=== PATIENT | female | born 1955 | race Caucasian/White ===

== ENCOUNTER → 2021-10-27 | Outpatient (CLI) | payer BC, MEDICARE ==
--- NOTE | 2021-10-27 14:15 | CT ---
EXAMINATION TYPE: CT right knee - [facility] Protocol DATE OF EXAM: 10/27/2021 COMPARISON: NONE HISTORY: Pre op CT DLP: 703.2 mGycm. Automated Exposure Control for Dose Reduction was Utilized. TECHNIQUE: CT scan of the right knee is performed without contrast. Imaging includes additional porti ons of the right lower extremity FINDINGS: Exam is for surgical planning and not for diagnostic purposes. Hip joints appear symmetric with mild acetabular spurring and relative preservation of hip joint spac es. Right knee shows moderate to severe medial tibiofemoral compartment narrowing with more moderate patellofemoral compartment narrowing and spurring and mild to moderate narrowing and moderate spurrin g lateral tibiofemoral compartment. Bilateral ankle joints show postsurgical change at level of sinus tarsi on the left. IMPRESSION: As above.
== END | disposition home or self-care (01) ==
LOC: RADCTMAIN 13:20
PROVIDERS: ATTEND Orthopaedic Surgery
DX: M76.891 Other specified enthesopathies of right lower limb, excluding foot (principal)

== ENCOUNTER → 2021-11-24 | Outpatient (CLI) | payer BC ==
[2021-11-24 13:35] LABS: INR 0.9 (<1.2); Partial Thromboplastin Time 24.7 sec (22.0-30.0); Prothrombin Time 10.2 sec (9.0-12.0)
[2021-11-24 18:41] LABS: Appearance,Urine Clear (Clear); Bilirubin,Urine Negative (Negative); Blood,Urine Negative (Negative); Color,Urine Yellow (Yellow); Ketones,Urine Negative (Negative); Nitrite,Urine Negative (Negative); PH, Urine 6.5 (5.0-8.0); Urobilinogen,Urine 0.2 (0.2,1.0)
[2021-11-24 18:46] LABS: African American GFR (CKD) 110.9 (60.0-200.0); Albumin/Globulin Ratio 1.54 (1.60-3.17); Anion Gap 9.4 mmol/L (10.00-18.00); BUN/Creat Ratio 17.67 Ratio (12.00-20.00); Blood Urea Nitrogen 10.6 mg/dL (9.0-27.0); Calcium 8.9 mg/dL (8.7-10.3); Carbon Dioxide 24.6 mmol/L (20.0-27.5); Globulin 2.6 g/dL (1.6-3.3); Non-African American GFR(CKD) 95.7 (60.0-200.0); Potassium 4.3 mmol/L (3.5-5.5); Total Bilirubin 0.2 mg/dL (0.30-1.20); Total Protein 6.6 g/dL (6.2-8.2)
[2021-11-24 19:49] LABS: HCT 43.6 % (37.2-46.3); MCH 29.7 pg (27.0-32.0); MCHC 32.1 g/dL (32.0-37.0); MCV 92.6 fL (80.0-97.0); Mean Platelet Volume 10.6 fL (9.5-12.2); NRBC Per 100 WBC 0 /100 WBCS (0.0-0.0); Platelet Count 225 X 10*3/uL (140-440); RBC 4.71 X 10*6/uL (4.10-5.20); RDW 13.5 % (11.5-14.5)
== END | disposition home or self-care (01) ==
LOC: LABPAT 12:25
PROVIDERS: ATTEND Orthopaedic Surgery
DX: Z01.818 Encounter for other preprocedural examination (principal); M17.11 Unilateral primary osteoarthritis, right knee
CPT/HCPCS: 80053; 81003; 85027; 85610; 85730; 87070; 93005

== ENCOUNTER 2021-12-09 08:19 | Observation (INO) | payer BC, MEDICARE ==
[2021-12-07 13:30] VITALS: BMI 33.5
[~2021-12-09 08:19] MED LIST: ACETAMINOPHEN TAB 500 MG TAB PO PRN; DEXAMETHASONE SOD PHOSPHATE 10 MG/ML 1 ML VIAL IV PRN; DOCUSATE 100 MG CAP PO PRN; FAMOTIDINE 20 MG/2 ML VIAL IVP PRN; KETOROLAC 15 MG/ML 1 ML VIAL IVP PRN; LACTATED RINGERS 1,000 ML IV SCH; MIDAZOLAM 2 MG/2 ML VIAL IV PRN; ONDANSETRON 4 MG/2 ML VIAL IVP PRN; TRANEXAMIC ACID IN NACL,ISO-OS 1,000 MG in SALINE 1 100ML.BAG IVPB PRN; fentaNYL (PF) 50 MCG/ML 2 ML AMP IV PRN; oxyCODONE ER 10 MG TAB.ER.12H PO PRN
[2021-12-09] MEDS ORDERED: MIDAZOLAM 2 MG/2 ML VIAL IVP ONE (09:22)
[2021-12-09] MEDS ORDERED: fentaNYL (PF) 50 MCG/ML 2 ML AMP IVP ONE (09:24)
[2021-12-09] MEDS ORDERED: TRANEXAMIC ACID IN NACL,ISO-OS 1,000 MG/100 ML BAG ONE (09:53)
[2021-12-09] MEDS ORDERED: ePHEDrine 50 MG/ML 1 ML VIAL ONE (09:53)
[2021-12-09] MEDS ORDERED: MIDAZOLAM 2 MG/2 ML VIAL ONE (09:53)
[2021-12-09] MEDS ORDERED: fentaNYL (PF) 50 MCG/ML 2 ML AMP ONE (09:53)
[2021-12-09] MEDS ORDERED: ROPIVACAINE 5 MG/ML 30 ML VIAL ONE (09:53)
[2021-12-09] MEDS ORDERED: PROPOFOL 10 MG/ML 20 ML VIAL IV ONE (09:53)
[2021-12-09] MEDS ORDERED: SODIUM CHLORIDE 0.9% (PF) 10 ML VIAL ONE (09:53)
[2021-12-09] MEDS: ROPIVACAINE/EPI/CLONIDINE/KET 50 ML SYRINGE MISCELLANE PRN ×3 (10:26→11:24)
[2021-12-09] MEDS ORDERED: LACTATED RINGERS 1,000 ML IV ONE ×2 (10:36)
--- NOTE | 2021-12-09 10:51 | P.ANPRN ---
Procedure Note - Anesthesia - Nerve Block Performed Right Adductor Canal Time Out Performed: Yes () Date of Procedure: 12/09/21 Procedure Start Time: Procedure Stop Time: Location of Patient: PreOp Indication: Acute Post-Operative Pain, Requested by Surgeon (Dr Navarro) Sedation Type: Sedate with meaningful contact maintained Preparation: Sterile Prep Position: Supine Catheter: None Needle Types: Pajunk Needle Gauge: 21 Ultrasound used to visualize needle placement: Yes Ultrasound used to observe medication spread: Yes Injectate: 0.5% Ropivacaine (see comment for volume) (15cc) Blood Aspirated: No Pain Paresthesia on Injection Noted: No Resistance on Injection: Normal Image Stored and Saved: Yes Events: Uneventful and Well Tolerated
--- NOTE | 2021-12-09 10:52 | P.ANPRN ---
Procedure Note - Anesthesia - Nerve Block Performed Right iPack Time Out Performed: Yes Date of Procedure: 12/09/21 Procedure Start Time: 09:36 Procedure Stop Time: 09:41 Location of Patient: PreOp Indication: Acute Post-Operative Pain, Requested by Surgeon (Dr Navarro) Sedation Type: Sedate with meaningful contact maintained Preparation: Sterile Prep Position: Supine Catheter: None Needle Types: Pajunk Needle Gauge: 21 Ultrasound used to visualize needle placement: Yes Ultrasound used to observe medication spread: Yes Injectate: 0.5% Ropivacaine (see comment for volume) (15cc +5cc PF Normal saline) Blood Aspirated: No Pain Paresthesia on Injection Noted: No Resistance on Injection: Normal Image Stored and Saved: Yes Events: Uneventful and Well Tolerated
[2021-12-09] MEDS ORDERED: HYDROcodone/APAP 5-325MG 1 EACH TAB PO PRN (12:16)
[2021-12-09] MEDS ORDERED: NALOXONE 0.4 MG/ML 1 ML VIAL IV PRN (12:16)
[2021-12-09] MEDS ORDERED: HYDROmorphone 0.5 MG/0.5 ML SYRINGE IVP PRN ×2 (12:16)
--- NOTE | 2021-12-09 12:18 | P.OP ---
Date of Procedure: 12/09/21 Preoperative Diagnosis: 1. Right knee osteoarthritis 2. Fibromyalgia 3. Asthma Postoperative Diagnosis: Same Procedure(s) Performed: Right total knee arthroplasty Implants: 1. [place] [employer] CR Femur Size #3 2. [place] [employer] [place] Tibial Base Size #3 3. [place] [employer] CS poly Size #3,9-mm 4. [place] [employer]lon all poly patella, Size #29 Anesthesia: regional, spinal Surgeon: Kip Navarro Distributed Generation Project Manager #1: Renuka Cortes Estimated Blood Loss (ml): 100 IV fluids (ml): 1,400 Pathology: none sent Condition: stable Disposition: PACU Indications for Procedure: I met with the patient preoperatively in the office setting and discussed treatment of their symptomatic knee arthritis. They failed a long course of nonsurgical treatment and elected to proceed with an elective total knee r eplacement. I discussed the potential risks and complications at length and gave them ample time to ask questions. Risks discussed included: risks from anesthesia, superficial site surgical infection, acute and/or chronic periprosthetic joint infection, delayed wound healing, drainage, wound necrosis, instability, stiffness, stiffness requiring manipulation and/or revision surgery, damage to local blood vessels or nerves, aseptic loosening of the implants, extensor mechanism issues including disruption, patellar maltracking, avascular necrosis etc., continued or worsened knee pain, generalized dissatisfaction with surgical outcome, need for revision surgery, an inability to regain preinjury level of function, DVT, PE, other medical complications, and possibly loss of life or limb. The patient voiced their understanding that while these are the most common complications other less common complications are possible. They provided both their verbal and written consent to go forward with surgery. Operative Findings: Severe tricompartmental osteoarthritis Description of Procedure: The patient was identified in preoperative holding and the correct operative extremity was verified and marked with a marker. I reviewed the consent form with the patient at length. All of their questions were answered. The patient was given a block by anesthesia. They were then brought back to the operating room. They were transferred onto the operating room table where a general anesthetic, preoperative antibiotics, and tranexamic acid were administered by anesthesia. A tourniquet was applied to the proximal aspect of the operative extremity. The contralateral extremity was padded under the heel and secured to the operating room table with a nonsterile blue towel and tape. The ipsilateral arm was carefully draped across the patient's chest and secured with a pillow and foam. A post was applied over the lateral aspect of the ipsilateral thigh and a bolster was placed under the ipsilateral foot. I verified that the operative extremity was stable and the knee was flexed to 90. The operative extremity was then placed in a leg nix, nonsterile drapes were applied, and the extremity was prepped and draped sterilely in the standard sterile fashion. Prior to starting surgery timeout was performed identifying the correct patient, operative extremity, and procedure. The leg was then elevated, exsanguinated with an Esmarch bandage, and the tourniquet was inflated. An anterior midline incision was made sharply with a scalpel. Once I had dissected deep to the superficial fascial layer medial and lateral flaps were elevated. A medial parapatellar arthrotomy was created. Upon opening the knee joint there were diffuse arthritic changes in all 3 compartments. The anterior horn of the medial meniscus were sharply released and a medial release was performed around the posterior medial corner of the knee to facilitate retractor placement. The fat pad was excised with electrocautery. The patella was found to be severely arthritic and a provisional cut was made with a sagittal saw to facilitate mobilization of the extensor mechanism during the procedure. Remnants of the ACL and PCL were then excised from the notch. 4 mm pins were then placed within the incision in the medial distal femur and proximal tibia. Arrays were applied to the pins and I verified they were completely tightened. The knee was then registered with the [employer] robot and manipulations in implant position were made to balance the knee and opitmize implant position. Using the Ming robotic saw all cuts were made in accordance with our plan. After all bony fragments had been removed the cuts were verified with the planar probe. The tibia was then subluxed forward and sized. The knee was brought into flexion and a lamina pickling drum operator was placed to allow removal of the meniscal remnants both medially and laterally as well as posterior osteophytes. Local anesthetic was then infiltrated around the joint capsule. Trial implants were then placed within the knee. Range of motion and collateral ligament tension was then evaluated. Adjustments in implant size and position were then made accordingly. Once the knee was felt to be appropriately balanced the Ming pins were removed. The patella was then recut, sized, and punched. A trial patellar button was then placed. With the trial components in place, the patella tracked midline. The femur was then drilled and the trial component removed. The trial tibial component was then appropriately rotated, pinned, and prepared for the keel. All trial components were then removed from the knee. The knee was thoroughly irrigated with pulsatile lavage. Cement was prepared via vacuum mixing in a bowl on the back table. I then hand pressurized cement into the femur and tibia and placed the implants beginning with the tibial base tray and poly liner, femoral component, and finally the patellar button. All extruded cement was removed including from the pin sites. Once the cement had hardened the knee was evaluated one final time with the final polyethylene liner in place. The knee had full extension and flexion and felt stable to varus and valgus stress throughout the arc of motion. The tourniquet was released and with the tourniquet down the patella tracked midline. All bleeders were controlled with electrocautery. The knee was then soaked for 3 minutes with a dilute Betadine soak. The knee was thoroughly irrigated using 3 L of sterile saline and pulsatile lavage. The extensor mechanism was then reapproximated using pop off Vicryl sutures followed by a running barbed suture. The knee was then closed in layers with a 0 strata fix for the deep fascial layer, 2-0 strata fix for the superficial subcutaneous layer and Monocryl and Steri-Strips for the skin. A sterile dressing was applied. I verified that all instrument, sponge, and sharp counts were correct. The patient was then transferred off the operating room table, extubated, and brought to recovery having tolerated the procedure well. Renuka Cortes PA-C was required as a skilled speech assistant due to the complexity of the procedure for patient positioning, draping, retraction, placement of hardware, and closure of wound. PLAN: The patient can weight-bear as tolerated on the operative extremity. DVT prophylaxis with aspirin 81 mg twice a day based on preoperative risk stratification. Follow-up in the office in 2 weeks for wound check and x-rays of the knee including an AP and lateral.
[2021-12-09] MEDS ORDERED: HYDROmorphone 0.5 MG/0.5 ML SYRINGE IVP ONE (12:35)
--- NOTE | 2021-12-09 13:00 | XR ---
EXAMINATION TYPE: XR knee limited RT DATE OF EXAM: 12/09/2021 COMPARISON: NONE HISTORY: 65-year-old female evaluation for postoperative abnormality and alignment TECHNIQUE: 2 views FINDINGS: Images show placement of right total knee arthroplasty. Both distal femoral and proximal tibial compo nents of the prosthesis are well seated without periprosthetic fracture. Alignment grossly anatomic. Anterior soft tissue swelling with soft tissue air as well as intra-articular air related to recent o peration. IMPRESSION: Uncomplicated postoperative appearance right total knee arthroplasty.
[2021-12-09] MEDS ORDERED: ALBUTEROL NEBULIZED 2.5 MG/3 ML INHALATION PRN (14:45)
[2021-12-09] MEDS ORDERED: ALBUTEROL HFA INHALER INHALATION PRN (14:45)
[2021-12-09] MEDS: HYDROcodone/APAP 5-325MG 1 EACH TAB PO PRN ×2 (15:30→22:32)
[2021-12-09] MEDS: LACTATED RINGERS 1,000 ML IV SCH (18:45)
[2021-12-09] MEDS: ASPIRIN 81 MG PO SCH (19:59)
[2021-12-09] MEDS ORDERED: SENNOSIDES-DOCUSATE SODIUM 1 EACH TAB PO SCH (21:00)
[2021-12-09] MEDS: hydrOXYzine pamoate 25 MG CAP PO PRN (22:30)
[2021-12-10] MEDS: HYDROmorphone 0.5 MG/0.5 ML SYRINGE IVP PRN ×3 (01:43→11:15)
[2021-12-10] MEDS: LACTATED RINGERS 1,000 ML IV SCH ×3 (02:25→08:19)
[2021-12-10] MEDS: hydrOXYzine pamoate 25 MG CAP PO PRN ×2 (04:08→09:30)
[2021-12-10] MEDS ORDERED: THYROID, PORK 30 MG TAB PO SCH (06:30)
[2021-12-10] MEDS ORDERED: oxyCODONE-APAP 5-325MG 1 EACH TAB PO PRN ×2 (07:02)
--- NOTE | 2021-12-10 07:05 | P.DS ---
Providers Date of admission: 12/10/21 02:28 Attending physician: Kip Navarro Consults: 12/09/21 12:16 Consult Physician Routine Consulting Provider: Oscar Shine Consult Reason/Comments: medical management Do you want consulting provider notified?: Yes Primary care physician: Elijah Billy Ashok [facility] Course: The patient is very pleasant 65-year-old female who underwent an uncomplicated total knee replacement yesterday. She did well during surgery and was transferred to the orthopedic floor. She's been up and walk. She initially had no pain but her block wore off and now she has some discomfort in her right knee. She states that [place] is not controlling her pain and she was switched to Percocet. She was seen and evaluated by physical therapy. She was ultimately cleared for discharge home. Plan - Discharge Summary Discharge Rx Participant: No New Discharge Prescriptions: New Aspirin 81 mg PO BID 30 Days #60 tab Docusate [Colace] 100 mg PO BID #60 capsule HYDROcodone/APAP 5-325MG [[place] 5-325] 1 - 2 tab PO Q6HR PRN 7 Days #32 tab PRN Reason: Pain Omeprazole 40 mg PO DAILY 30 Days #30 cap Diclofenac Sodium [Voltaren] 75 mg PO BID 30 Days #60 tab No Action Diclofenac Sodium [Voltaren] 75 mg PO BID Ascorbic Acid [Vitamin C] 500 mg PO DAILY Turmeric Root Extract [Turmeric] 500 mg PO DAILY Gluc/Chond/MSM/Hyal/Casa Borate [Move Free Plus MSM Tablet] 1 each PO DAILY Alpha Lipoic Acid 300 mg PO DAILY Ubidecarenone [Co Q-10] 100 mg PO DAILY Albuterol Nebulized [Ventolin Nebulized] 2.5 mg INHALATION Q6H PRN PRN Reason: alg Pregnenolone 1 dose PO DAILY Iodine Liquid 4 drop PO DAILY Deha Supp 10 mg PO DAILY traMADol HCL 25 mg PO Q6H PRN PRN Reason: Pain Thyroid,Pork [[place] Thyroid] 45 mg PO QAM Magnesium 800 mg PO DAILY Zinc Citrate [Zinc] 15 mg PO DAILY Gluc Control Supplement 1 dose PO DAILY Cholecalciferol (Vitamin D3) [Vitamin D3 (125 MCG = 5,000 IU)] 250 mcg PO DAILY Milk Thistle 150 mg PO DAILY Vitamin B Complex 1 each PO DAILY Albuterol Inhaler [Ventolin Hfa Inhaler] 1 - 2 puff INHALATION Q6H PRN PRN Reason: sob Tocotrienal 1 dose PO DAILY Edta Supp 300 mg PO DAILY Discharge Medication List Albuterol Inhaler [Ventolin Hfa Inhaler] 1 - 2 puff INHALATION Q6H PRN 12/07/21 [History] Albuterol Nebulized [Ventolin Nebulized] 2.5 mg INHALATION Q6H PRN 12/07/21 [History] Alpha Lipoic Acid 300 mg PO DAILY 12/07/21 [History] Ascorbic Acid [Vitamin C] 500 mg PO DAILY 12/07/21 [History] Cholecalciferol (Vitamin D3) [Vitamin D3 (125 MCG = 5,000 IU)] 250 mcg PO DAILY 12/07/21 [History] Deha Supp 10 mg PO DAILY 12/07/21 [History] Diclofenac Sodium [Voltaren] 75 mg PO BID 12/07/21 [History] Edta Supp 300 mg PO DAILY 12/07/21 [History] Gluc Control Supplement 1 dose PO DAILY 12/07/21 [History] Gluc/Chond/MSM/Hyal/Casa Borate [Move Free Plus MSM Tablet] 1 each PO DAILY 12/07/21 [History] Iodine Liquid 4 drop PO DAILY 12/07/21 [History] Magnesium 800 mg PO DAILY 12/07/21 [History] Milk Thistle 150 mg PO DAILY 12/07/21 [History] Pregnenolone 1 dose PO DAILY 12/07/21 [History] Thyroid,Pork [[place] Thyroid] 45 mg PO QAM 12/07/21 [History] Tocotrienal 1 dose PO DAILY 12/07/21 [History] Turmeric Root Extract [Turmeric] 500 mg PO DAILY 12/07/21 [History] Ubidecarenone [Co Q-10] 100 mg PO DAILY 12/07/21 [History] Vitamin B Complex 1 each PO DAILY 12/07/21 [History] Zinc Citrate [Zinc] 15 mg PO DAILY 12/07/21 [History] traMADol HCL 25 mg PO Q6H PRN 12/07/21 [History] Aspirin 81 mg PO BID 30 Days #60 tab 12/09/21 [Rx] Diclofenac Sodium [Voltaren] 75 mg PO BID 30 Days #60 tab 12/09/21 [Rx] Docusate [Colace] 100 mg PO BID #60 capsule 12/09/21 [Rx] HYDROcodone/APAP 5-325MG [[place] 5-325] 1 - 2 tab PO Q6HR PRN 7 Days #32 tab 12/09/21 [Rx] Omeprazole 40 mg PO DAILY 30 Days #30 cap 12/09/21 [Rx] Follow up Appointment(s)/Referral(s): [facility], [NON-STAFF] - 1 Week Kip Navarro MD [Medical Doctor] - 2 Weeks Activity/Diet/Wound Care/Special Instructions: Weight bear to tolerance on operative extremity with a walker. Keep operative dressing intact until follow-up appointment in the office. Call the office if dressing becomes saturated or falls off. May shower over dressing. Take pain medications as needed. Take aspirin 81mg BID x 4 weeks for blood clot prevention. Follow-up in the office in two weeks with Dr. Navarro. Call the office with any questions or concerns,
[2021-12-10] MEDS: ASPIRIN 81 MG PO SCH (07:17)
[2021-12-10] MEDS: oxyCODONE-APAP 5-325MG 1 EACH TAB PO PRN ×2 (07:18→12:33)
[2021-12-10 08:40] VITALS: BP 129/72; PULSE 65; RESP 19; TEMP 97.7
[2021-12-10] MEDS ORDERED: MAGNESIUM OXIDE 400 MG TAB PO SCH (09:00)
[2021-12-10] MEDS ORDERED: ASCORBIC ACID 500 MG TAB PO SCH (09:00)
[2021-12-10] MEDS ORDERED: ZINC SULFATE 220 MG CAP PO SCH (09:00)
--- NOTE | 2021-12-10 12:27 | P.CONS ---
History of Present Illness - History of Present Illness This is a pleasant 65 years old female with multiple medical problems as below presents with severe osteoarthritis and she underwent right total knee arthroplasty. Today is postoperative day #1 Patient had severe pain and the right knee surgery site and she received Dilaudid and now her pain is better to rule out-3/10 in severity. However patient's is eager to go home as she told me and patient actually has already been discharged by orthopedic team. Patient denies any other medical issue, no chest pain or dyspnea. No coughing, no dizziness or headache or weakness or numbness. No vomiting or diarrhea or abdominal pain. No urinary complaints. Patient states that she go home with her betas O she will feel better despite her significant pain. Patient denies smoking, alcohol or illicit drugs. Vitals are stable Check labs in the system, there is no labs currently. Medications reviewed Review of Systems Review of systems CONSTITUTIONAL: No fever, no malaise, no fatigue. HEENT: No recent visual problems or hearing problems. Denied any sore throat. CARDIOVASCULAR: No orthopnea, PND, no palpitations, no syncope. PULMONARY: No shortness of breath, no cough, no hemoptysis. GASTROINTESTINAL: No diarrhea, no nausea, no vomiting, no abdominal pain. Normoactive bowel sounds. NEUROLOGICAL: No headaches, no weakness, no numbness. HEMATOLOGICAL: Denies any bleeding or petechiae. GENITOURINARY: Denies any burning micturition, frequency, or urgency. MUSCULOSKELETAL/RHEUMATOLOGICAL: Denies any joint pain, swelling, or any muscle pain. ENDOCRINE: Denies any polyuria or polydipsia. Past Medical History Past Medical History: Asthma, Fibromyalgia, Osteoarthritis (OA), Thyroid Disorder Additional Past Medical History / Comment(s): had a superficial blood clot behind knee after 14 hr plane ride yrs ago History of Any Multi-Drug Resistant Organisms: None Reported Past Surgical History: Appendectomy, Orthopedic Surgery, Tonsillectomy, Uterine Ablation Additional Past Surgical History / Comment(s): right knee arthroscopy, implant lt ankle,uterine growth removed Past Anesthesia/Blood Transfusion Reactions: Postoperative Nausea & Vomiting (PONV) Past Psychological History: No Psychological Hx Reported Smoking Status: Former smoker Past Alcohol Use History: None Reported Additional Past Alcohol Use History / Comment(s): quit smoking 1993,started smoking at 16 Additional Drug Use History / Comment(s): used CBD oil on cream on knee and thumb - Past Family History Mother Family Medical History: Diabetes Mellitus, Hypertension Brother(s) Family Medical History: Cancer Additional Family Medical History / Comment(s): colon Father Family Medical History: Osteoarthritis (OA) Additional Family Medical History / Comment(s): Diverticulitis Medications and Allergies Home Medications Medication Instructions Recorded Confirmed Type Albuterol Inhaler [Ventolin Hfa 1 - 2 puff INHALATION Q6H PRN 12/07/21 12/07/21 History Inhaler] Albuterol Nebulized [Ventolin 2.5 mg INHALATION Q6H PRN 12/07/21 12/07/21 History Nebulized] Alpha Lipoic Acid 300 mg PO DAILY 12/07/21 12/07/21 History Ascorbic Acid [Vitamin C] 500 mg PO DAILY 12/07/21 12/07/21 History Cholecalciferol (Vitamin D3) 250 mcg PO DAILY 12/07/21 12/07/21 History [Vitamin D3 (125 MCG = 5,000 IU)] Deha Supp 10 mg PO DAILY 12/07/21 12/07/21 History Diclofenac Sodium [Voltaren] 75 mg PO BID 12/07/21 12/09/21 History Edta Supp 300 mg PO DAILY 12/07/21 12/07/21 History Gluc Control Supplement 1 dose PO DAILY 12/07/21 12/07/21 History Gluc/Chond/MSM/Hyal/Casa Borate 1 each PO DAILY 12/07/21 12/07/21 History [Move Free Plus MSM Tablet] Iodine Liquid 4 drop PO DAILY 12/07/21 12/09/21 History Magnesium 800 mg PO DAILY 12/07/21 12/07/21 History Milk Thistle 150 mg PO DAILY 12/07/21 12/07/21 History Pregnenolone 1 dose PO DAILY 12/07/21 12/07/21 History Thyroid,Pork [[place] Thyroid] 45 mg PO QAM 12/07/21 12/09/21 History Tocotrienal 1 dose PO DAILY 12/07/21 12/07/21 History Turmeric Root Extract [Turmeric] 500 mg PO DAILY 12/07/21 12/07/21 History Ubidecarenone [Co Q-10] 100 mg PO DAILY 12/07/21 12/07/21 History Vitamin B Complex 1 each PO DAILY 12/07/21 12/07/21 History Zinc Citrate [Zinc] 15 mg PO DAILY 12/07/21 12/07/21 History traMADol HCL 25 mg PO Q6H PRN 12/07/21 12/09/21 History Aspirin 81 mg PO BID 30 Days #60 tab 12/09/21 Rx Diclofenac Sodium [Voltaren] 75 mg PO BID 30 Days #60 tab 12/09/21 Rx Docusate [Colace] 100 mg PO BID #60 capsule 12/09/21 Rx Omeprazole 40 mg PO DAILY 30 Days #30 cap 12/09/21 Rx oxyCODONE-APAP 5-325MG [Percocet 1 tab PO Q6HR PRN #28 tab 12/10/21 Rx 5-325 mg] Allergies Allergy/AdvReac Type Severity Reaction Status Date / Time Penicillins Allergy Anaphylaxis Verified 12/09/21 08:43 codeine AdvReac Nausea & Verified 12/09/21 08:43 Vomiting Physical Exam Vitals: Vital Signs Temp Pulse Pulse Pulse Resp BP Pulse Ox 12/10/21 08:38 97.7 F 65 19 129/72 96 12/10/21 02:18 97.9 F 74 17 110/62 96 12/09/21 20:00 98 F 99 16 106/66 96 12/09/21 18:26 16 12/09/21 15:15 109 H 122/77 93 L 12/09/21 15:00 103 H 118/75 92 L 12/09/21 14:46 101 H 130/78 93 L 12/09/21 14:31 103 H 116/63 92 L 12/09/21 14:16 104 H 122/67 90 L 12/09/21 14:00 101 H 126/76 91 L 12/09/21 13:00 98.6 F 97 16 129/77 90 L 12/09/21 12:28 88 16 138/70 97 12/09/21 12:13 97.9 F 94 16 138/70 99 Intake and Output 12/09/21 12/10/21 12/10/21 22:59 06:59 14:59 Output Total 400 Balance -400 Output: Urine 400 Other: Voiding Method Toilet # Voids 4 Weight 95.1 kg GENERAL: The patient is alert and oriented x3, not in any acute distress. Well developed, well nourished. HEENT: Pupils are round and equally reacting to light. EOMI. No scleral icterus. No conjunctival pallor. Normocephalic, atraumatic. No pharyngeal erythema. No thyromegaly. CARDIOVASCULAR: S1 and S2 present. No murmurs, rubs, or gallops. PULMONARY: Chest is clear to auscultation, no wheezing or crackles. ABDOMEN: Soft, nontender, nondistended, normoactive bowel sounds. No palpable organomegaly. MUSCULOSKELETAL: No joint swelling or deformity. -EXTREMITIES: No cyanosis, clubbing, or pedal edema. Right knee surgical wound with dressing, rest of exam is deferred to surgery team NEUROLOGICAL: Gross neurological examination did not reveal any focal deficits. SKIN: No rashes. no petechiae. Assessment and Plan Assessment: Severe osteoarthritis status post right total knee arthroplasty. 2 days' postop day #1 History of fibromyalgia Hypothyroidism Obesity with BMI of 33.8 Plan: Continue with DVT prophylaxis and pain management as per surgery team Continue with incentive spirometry We recommend patient follow up closely with her PCP Dr. Heller in one week. Thank you for consulting us, we will follow with you on as needed basis. Please feel free to contact us for any further question or clarification
[2021-12-10 12:55] LABS: Basophils # (A) 0.04 X 10*3/uL (0.00-0.10); Basophils % (A) 0.3 %; Eosinophils # (A) 0 X 10*3/uL (0.04-0.35); Eosinophils % (A) 0 %; HCT 36.1 % (37.2-46.3); HGB 11.7 g/dL (12.0-15.0); Immature Grans, Automated 0.4 %; Lymphocytes # (A) 1.89 X 10*3/uL (0.90-5.00); Lymphocytes % (A) 13.3 %; MCH 29.8 pg (27.0-32.0); MCHC 32.4 g/dL (32.0-37.0); MCV 92.1 fL (80.0-97.0); Mean Platelet Volume 10.6 fL (9.5-12.2); Monocytes # (A) 1.23 X 10*3/uL (0.20-1.00); Monocytes % (A) 8.7 %; NRBC Per 100 WBC 0 /100 WBCS (0.0-0.0); Neutrophils # (A) 10.94 X 10*3/uL (1.80-7.70); Neutrophils % (A) 77.3 %; Platelet Count 208 X 10*3/uL (140-440); RBC 3.92 X 10*6/uL (4.10-5.20); RDW 13.4 % (11.5-14.5); WBC 14.16 X 10*3/uL (4.50-10.00)
== END 2021-12-10 13:20 | disposition home health service (06) ==
LOC: OR 08:19 → 4SSUR 12:13 → OR 12-10 02:28 → 4SSUR 12-10 02:28
PROVIDERS: ADMIT Orthopaedic Surgery; ATTEND Orthopaedic Surgery
DX: M17.11 Unilateral primary osteoarthritis, right knee (principal); M79.7 Fibromyalgia; J45.909 Unspecified asthma, uncomplicated; E03.9 Hypothyroidism, unspecified; E66.9 Obesity, unspecified; Z68.33 Body mass index [BMI] 33.0-33.9, adult; Z97.3 Presence of spectacles and contact lenses; Z90.49 Acquired absence of other specified parts of digestive tract; Z98.890 Other specified postprocedural states; Z87.891 Personal history of nicotine dependence; Z83.3 Family history of diabetes mellitus; Z82.49 Family history of ischemic heart disease and other diseases of the circulatory system; Z80.0 Family history of malignant neoplasm of digestive organs; Z79.1 Long term (current) use of non-steroidal anti-inflammatories (NSAID); Z79.890 Hormone replacement therapy; Z79.891 Long term (current) use of opiate analgesic; Z79.82 Long term (current) use of aspirin; Z79.899 Other long term (current) drug therapy; Z88.5 Allergy status to narcotic agent; Z88.0 Allergy status to penicillin
CPT/HCPCS: 97162; 85025; 73560; 27447; G0378; J2250; J1100; J0690 ×2; J2405; J3010; J2795; J1885; J2704; J1170 ×2